=== PATIENT | female | born 1955 | race Hispanic/Latino ===

== ENCOUNTER → 2022-03-05 | Outpatient (CLI) | payer OTHER ==
[~2022-03-05] VITALS: Ht 149.9 cm; Wt 103.4 kg
[~2022-03-05] MED LIST: ALEN70TA80 PO; ATOR40TA71 PO; LISI10TA24 PO; OXYB5TAB15 PO; PANT40TA54 PO
[2022-03-05 13:17] LABS: BASOPHILS % (AUTO) 0.5 % (0.0-5.0); EOSINOPHILS % (AUTO) 3.5 % (0.0-8.0); HEMATOCRIT 38.1 % (36-48); LYMPHOCYTES % (AUTO) 34.3 % (21.0-51.0); MEAN CORPUSCULAR HEMOGLOBIN 26.1 pg (27.0-33.0); MEAN CORPUSCULAR HGB CONC 30.4 g/dL (32.0-36.0); MEAN CORPUSCULAR VOLUME 85.6 fL (79-99); MONOCYTES % (AUTO) 10.3 % (3.0-13.0); NEUTROPHILS % (AUTO) 51.1 % (40.0-77.0); PLATELET COUNT (AUTO) 298 K/uL (130-400); RED BLOOD CELL COUNT(AUTO) 4.45 MIL/uL (4.00-5.50); RED CELL DISTRIBUTION WIDTH 13.7 % (11.0-15.5); WHITE BLOOD COUNT (AUTO) 5.9 K/uL (4.8-10.8)
[2022-03-05 13:34] LABS: CREATININE 0.9 mg/dL (0.5-1.5); POTASSIUM 4.8 mmol/L (3.5-5.1)
[2022-03-10 09:09] VITALS: BP 111/62
== END | disposition home or self-care (01) ==
LOC: DAH 10:00 → EDSTATUS 03-11 07:30
PROVIDERS: ATTEND Neuromusculoskeletal Medicine & OMM
DX: Z01.818 Encounter for other preprocedural examination (principal); M54.16 Radiculopathy, lumbar region; M48.062 Spinal stenosis, lumbar region with neurogenic claudication
CPT/HCPCS: 80048; 85025; 36415; A6260

== ENCOUNTER 2022-04-08 05:51 | Day surgery (SDC) | payer OTHER ==
[2022-04-06 11:05] VITALS: BP 154/74
[2022-04-06 11:24] LABS: BASOPHILS % (AUTO) 0.4 % (0.0-5.0); EOSINOPHILS % (AUTO) 3.1 % (0.0-8.0); HEMATOCRIT 39.4 % (36-48); LYMPHOCYTES % (AUTO) 29.5 % (21.0-51.0); MEAN CORPUSCULAR HEMOGLOBIN 25.5 pg (27.0-33.0); MEAN CORPUSCULAR HGB CONC 30.5 g/dL (32.0-36.0); MEAN CORPUSCULAR VOLUME 83.7 fL (79-99); MONOCYTES % (AUTO) 8.2 % (3.0-13.0); NEUTROPHILS % (AUTO) 58.5 % (40.0-77.0); PLATELET COUNT (AUTO) 302 K/uL (130-400); RED BLOOD CELL COUNT(AUTO) 4.71 MIL/uL (4.00-5.50); RED CELL DISTRIBUTION WIDTH 14.6 % (11.0-15.5); WHITE BLOOD COUNT (AUTO) 6.8 K/uL (4.8-10.8)
[2022-04-06 11:46] LABS: POTASSIUM 4.8 mmol/L (3.5-5.1)
[~2022-04-08] VITALS: Ht 149.9 cm; Wt 101.5 kg
[2022-04-08] VITALS (12 sets, daily range): BP systolic 97–120; BP diastolic 57–75
[~2022-04-08 05:51] MED LIST changes: +BUPIVACAINE/EPI/PF 0.25% 30ML VIAL IJ ONE; +LIDOCAINE HCL 1% 20 ML VIAL INJ ONE
[2022-04-08] MEDS ORDERED: LACTATED RINGERS 1000ML 1,000 ML IV ONE (06:24)
[2022-04-08] MEDS ORDERED: METRONIDAZOLE 500MG/100ML BAG 100 ML IVPB SCH (06:30)
[2022-04-08] MEDS ORDERED: CEFAZOLIN SODIUM 1 GM VIAL IVP SCH (06:30)
[2022-04-08] MEDS ORDERED: PHARMACY COMMUNICATION MISC SCH (06:30)
[2022-04-08] MEDS ORDERED: BUPIVACAINE/PF 0.25% 30ML VIAL IJ ONE (07:26)
[2022-04-08] MEDS ORDERED: LIDOCAINE HCL 1% 10 ML VIAL ONE (07:26)
[2022-04-08] MEDS ORDERED: IOPAMIDOL 10 ML VIAL ONE (07:44)
[2022-04-08] MEDS ORDERED: MIDAZOLAM HCL 1 MG/ML 2ML VIAL ONE (08:35)
[2022-04-08] MEDS ORDERED: ONDANSETRON 4MG INJ ONE (08:35)
[2022-04-08] MEDS ORDERED: LIDOCAINE PF 100MG/5ML (2%) SYRINGE 5ML ONE (08:35)
[2022-04-08] MEDS ORDERED: PROPOFOL 10 MG/ML 20ML VIAL IV ONE (08:35)
[2022-04-08] MEDS ORDERED: DEXAMETHASONE SOD PHOSPHATE 10MG/ML 1ML VIAL ONE (08:35)
[2022-04-08] MEDS ORDERED: FENTANYL CITRATE PF 50 MCG/1 ML 2ML VIAL ONE (08:36)
[2022-04-08] MEDS ORDERED: LIDOCAINE HCL 1% 20 ML VIAL INJ ONE (08:39)
[2022-04-08] MEDS ORDERED: BUPIVACAINE/EPI/PF 0.25% 30ML VIAL IJ ONE (08:39)
== END 2022-04-08 10:20 | disposition home or self-care (01) ==
LOC: DAH 05:51
PROVIDERS: ATTEND Neuromusculoskeletal Medicine & OMM
DX: M54.16 Radiculopathy, lumbar region (principal); M48.062 Spinal stenosis, lumbar region with neurogenic claudication; I10 Essential (primary) hypertension; Z79.899 Other long term (current) drug therapy; Z20.822 Contact with and (suspected) exposure to COVID-19
CPT/HCPCS: 87426; 80048; 85025; 36415; 64483; 72110; 93005; A6260; J7120; J3010; J1100; J3490 ×3; J2001; J2250; J2704; J2405; J1030 ×2; Q9966; A4930; A4215; A4223; A4222; A4221; A4663